=== PATIENT | female | born 1945 | race Caucasian/White ===

== ENCOUNTER 2018-09-30 20:38 | Inpatient (IN) | payer MEDICARE, BC ==
[~2018-09-30] VITALS: Ht 157.5 cm; Wt 110.4 kg
[~2018-09-30 20:38] MED LIST: ADVAIR DISKU AER 500; ALBU90OI6 INH; ALLO300 PO; ATOR40TA PO; Albuterol2.5 MG/0.5 INH; FLUT1DIS8 INH; Fortamet500 MG PO; LISI20 PO; LISI5 PO; METF500 PO; METO50ER PO; METPRE4DP PO; OMEPRAZOLE CAP 20M; OMEPRAZOLE MAGN20 MG PO; PARO20 PO; Percocet 5-3251 EACH PO; Pravachol40 MG PO; Robaxin500 MG PO; TIOT18 INH; TRELEGY ELLIPT1 EACH INH; WARF2.5 PO; WARF5 PO
[2018-09-30 21:11] LABS: PCO2 Arterial 41.3 mmHg (35-45); PO2 Arterial 60.1 mmHg (80-100); pH Blood Arterial 7.38 (7.35-7.45)
[2018-09-30 21:14] LABS: BASOPHILS ABSOLUTE AUTO 0.08 K/mm3 (0.00-0.23); BASOPHILS PERCENT AUTO 1 % (0-2); EOSINOPHILS PERCENT AUTO 1 % (0-6); Hematocrit 44.9 % (33.0-51.0); Hemoglobin 13.9 g/dL (11.5-16.0); IMMATURE GRAN ABSOLUTE AUTO 0.09 K/mm3 (0.00-0.10); IMMATURE GRAN PERCENT AUTO 1 % (0-1); LYMPHOCYTES ABSOLUTE AUTO 2.38 K/mm3 (0.84-5.20); LYMPHOCYTES PERCENT AUTO 14 % (21-46); MONOCYTES ABSOLUTE AUTO 0.75 K/mm3 (0.16-1.47); MONOCYTES PERCENT AUTO 4 % (4-13); Mean Corpuscular HGB 30.9 pg (26.0-34.0); Mean Corpuscular Volume 100 fL (80-100); Mean Platelet Volume 10.9 fL (9.1-12.4); NEUTROPHILS PERCENT AUTO 80 % (41-73); Platelet Count 243 K/mm3 (150-400); RDW Coefficient Variation 14.6 % (11.7-14.2); RDW Standard Deviation 54.3 fL (35.1-46.3)
[2018-09-30 21:46] LABS: Alanine Aminotransfer (ALT/SGP 19 U/L (12-78); Albumin, Blood 3.4 g/dL (3.4-5.0); Albumin/Globulin Ratio 0.7 (0.8-1.8); Alk Phos 138 U/L (50-136); Anion Gap 6 mmol/L (6-16); Aspartate Aminotrans (AST/SGOT 20 U/L (12-37); Bilirubin, Total 1.1 mg/dL (0.1-1.0); Blood Urea Nitrogen 18 mg/dL (8-24); Bun/Creatinine Ratio 20.7 (12.0-20.0); CO2, Blood 29 mmol/L (21-32); Calcium, Blood 9.1 mg/dL (8.5-10.1); Chloride, Blood 103 mmol/L (98-108); Creatinine, Blood 0.87 mg/dL (0.40-1.00); Globulin, Blood 4.7 g/dL (2.2-4.0); Glomerular Filtration Rate >60 (60-); Glucose, Blood 133 mg/dL (70-99); Potassium, Blood 4.6 mmol/L (3.5-5.5); Sodium, Blood 138 mmol/L (136-145); Total Protein, Blood 8.1 g/dL (6.4-8.2); Troponin I <0.015 ng/mL (0.000-0.040)
[2018-09-30 22:17] LABS: International Normalized Ratio 2.24; Prothrombin Time Results 22.1 Sec (9.7-11.5)
--- NOTE | 2018-10-01 03:19 | NUR ---
ED ADMIT AT 2315. ON BIPAP 19/15. FIO2 AT 100 % , BUR 14 AND RR 27 / AWAKE AND QUICK RESPONSE TO QUEATION AND ORIENTED. RESP CONSERVE SO MINIMAL QUESTIONS. MOVE ALL EXT W/O IMPAIRMENT. PER HX CVA . HX BREAST CA . COARSE LUNGS AND AWARE MD DID NOT WANT LASIX AT THIS X . LACTIC ACID WNL AT 0100 AND DID NOT CALL MD. WEANING TO 50% FIO2 OVER LAST 4 HRS . TOOK OFF QUICKLY TO COUGH AND SWAB FOR RESP PANEL. DROPLET ISO UNTIL CONPLETE .REPOSITIONS SELF IN BED AND ASSISTS WELL FOR BED SAEZ. DENIES PAIN AND DOZING AT LONG INTERVALS ON BIPAP. AF CONTROLLED . 80-100. NEURO CHECK WNL.
[2018-10-01 05:00] LABS: Adenovirus Not Detected (NOT DETECT); Bordetella pertussis Not Detected (NOT DETECT); Chlamydophila pneumoniae Not Detected (NOT DETECT); Coronavirus 229E Not Detected (NOT DETECT); Coronavirus HKU1 Not Detected (NOT DETECT); Coronavirus NL63 Not Detected (NOT DETECT); Coronavirus OC43 Not Detected (NOT DETECT); Human Metapneumovirus Not Detected (NOT DETECT); Human Rhinovirus/Enterovirus Not Detected (NOT DETECT); Influenza A Not Detected (NOT DETECT); Influenza A/2009-H1 Not Detected (NOT DETECT); Influenza A/H1 Not Detected (NOT DETECT); Influenza A/H3 Not Detected (NOT DETECT); Influenza B Not Detected (NOT DETECT); Mycoplasma pneumoniae Not Detected (NOT DETECT); Parainfluenza Virus 1 Not Detected (NOT DETECT); Parainfluenza Virus 2 Not Detected (NOT DETECT); Parainfluenza Virus 3 Not Detected (NOT DETECT); Parainfluenza Virus 4 Not Detected (NOT DETECT); Respiratory Syncytial Virus Not Detected (NOT DETECT)
[2018-10-01 05:29] LABS: Hematocrit 42.5 % (33.0-51.0); Hemoglobin 13.7 g/dL (11.5-16.0); Mean Corpuscular HGB 30.4 pg (26.0-34.0); Mean Corpuscular HGB Conc 32.2 g/dL (31.5-36.5); Mean Platelet Volume 11.8 fL (9.1-12.4); Platelet Count 182 K/mm3 (150-400); RDW Coefficient Variation 14.6 % (11.7-14.2); RDW Standard Deviation 51.1 fL (35.1-46.3); White Blood Cell Count 24.88 K/mm3 (4.00-11.30)
[2018-10-01 05:32] LABS: Mean Corpuscular Volume 94 fL (80-100)
[2018-10-01 05:46] LABS: Bun/Creatinine Ratio 19.1 (12.0-20.0); Calcium, Blood 8.8 mg/dL (8.5-10.1); Creatinine, Blood 1.31 mg/dL (0.40-1.00); Potassium, Blood 4.5 mmol/L (3.5-5.5)
[2018-10-01 09:26] LABS: International Normalized Ratio 2.37; Prothrombin Time Results 23.2 Sec (9.7-11.5)
--- NOTE | 2018-10-01 10:40 | NUR ---
AM NOTE RESTING QUIETLY. CHRONIC AFIB. VSS. PT TAKING REST BREAKS FROM BIPAP. 4L OXIMYZER. CONTINIOUS BIOX 93% ON HIGHER. ONE TRANSFER TO BSC. MILD SOB WITH TRANSFER. ABLE TO EAT WITHOUT DESATING. GEL PAD APPLIED TO BRIDGE OF NOSE FOR COMFORT AND SKIN PROTECTION. CONTINUE POT.
--- NOTE | 2018-10-02 02:20 | NUR ---
ASSUMED CARE AT 1900. AROUSABLE AND ORIENTED AND ABLE TO EXPRESS NEEDS THRU MASK OF BIPAP. ..35% FIO2. DENIES PAIN DOZING OFF TO SLEEP. USES CALL LITE FOR BSC . 1 PERSON ASSIST. 4L OXIMIZER USED WITH BIPAP BREAK. LONGEST BREAK WAS 1 HR AND REFUSED HS SNACK. MILD SOB WHEN OOB. SELF CARE FOR TEETH. AF CONTROLLED.
[2018-10-02 04:27] LABS: BASOPHILS ABSOLUTE AUTO 0.04 K/mm3 (0.00-0.23); BASOPHILS PERCENT AUTO 0 % (0-2); EOSINOPHILS PERCENT AUTO 0 % (0-6); Hematocrit 38.5 % (33.0-51.0); IMMATURE GRAN ABSOLUTE AUTO 0.34 K/mm3 (0.00-0.10); IMMATURE GRAN PERCENT AUTO 1 % (0-1); LYMPHOCYTES ABSOLUTE AUTO 1.44 K/mm3 (0.84-5.20); LYMPHOCYTES PERCENT AUTO 6 % (21-46); MONOCYTES ABSOLUTE AUTO 1.53 K/mm3 (0.16-1.47); MONOCYTES PERCENT AUTO 6 % (4-13); Mean Corpuscular HGB 29.7 pg (26.0-34.0); Mean Corpuscular HGB Conc 31.2 g/dL (31.5-36.5); Mean Corpuscular Volume 95 fL (80-100); Mean Platelet Volume 11.8 fL (9.1-12.4); NEUTROPHILS ABSOLUTE AUTO 21.87 K/mm3 (1.96-9.15); NEUTROPHILS PERCENT AUTO 87 % (41-73); Platelet Count 198 K/mm3 (150-400); RDW Coefficient Variation 14.8 % (11.7-14.2); RDW Standard Deviation 52.3 fL (35.1-46.3); Red Blood Cell Count 4.04 M/mm3 (3.80-5.20); White Blood Cell Count 25.22 K/mm3 (4.00-11.30)
[2018-10-02 04:39] LABS: International Normalized Ratio 3.23; Prothrombin Time Results 30.8 Sec (9.7-11.5)
[2018-10-02 04:45] LABS: Calcium, Blood 9.1 mg/dL (8.5-10.1); Creatinine, Blood 1.5 mg/dL (0.40-1.00); Potassium, Blood 4.3 mmol/L (3.5-5.5)
--- NOTE | 2018-10-02 06:07 | NUR ---
SHIFT SUMMARY. NO CHANGE FROM ABOVE NOTE. NO ACUTE RESP ISSUE. AND SLEPT VERY WELL IN BETWEEN OOB TO VOID. WEARS BIPAP ALL NOC W/ MINIMAL BREAKS.
--- NOTE | 2018-10-02 07:59 | NUR ---
PERMISSION FOR CARE PT GAVE THIS SHIPYARD PAINTER APPRENTICE PERMISSION TO PROVIDE CARE 10/02/18.
--- NOTE | 2018-10-02 13:10 | NUR ---
RECIEVED ORDERS TO TRANSFER PT TO MED FLOOR. RECIEVED ROOM ASSIGNMENT. REPORT CALLED TO RECIEVING RN. PT STABLE UPON DEPARTING UNIT. NO S/SX OF ACUTE DISTRESS. NO SOB. PT ESCORTED VIA WHEELCHAIR FROM PEER STAFF.
--- NOTE | 2018-10-02 16:13 | NUR ---
Patient gave director community health nursing permission to care for them on 10/03/18.
--- NOTE | 2018-10-02 18:41 | NUR ---
SHIFT SUMMARY SILVIANO ARRIVED THIS AFTERNOON FROM PCU. SHE DENIES PAIN, SBA TO BR. SISTER AT . WEANED DOWN TO 2L OXYGEN, SATS FINE. CBG WNL THIS SHIFT. WCTM
--- NOTE | 2018-10-03 04:26 | NUR ---
SHIFT SUMMARY PT ALERT/ORIENTED. BECOMES DYSPNEIC WITH EXERTION. PT ONLY ABLE TO TOLERATE CPAP FOR A COUPLE OF HOURS, SATS DROPPING DOWN TO 83%. MASK NOT FITTING RIGHT TO COMPLETELY SEAL. OXYGEN PLACED BACK ON PER NC AT 3L AND SATS MAINTAIN AT 92%. PT UP TO BATHROOM DURING THE NIGHT AND SATS DO DROP INTO THE UPPER 70'S WITH OXYGEN. PT OFFERS NO C/O'S, WILL CONTINUE TO MONITOR.
[2018-10-03 05:40] LABS: International Normalized Ratio 3.09; Prothrombin Time Results 29.6 Sec (9.7-11.5)
--- NOTE | 2018-10-03 14:42 | NUR ---
PT IS ALERT AND ORIENTED AND COOPERATIVE WITH CARE. SHE SHOWERED INDEPENDENTLY TODAY. SHE IS WEARING 3L O2 VIA NC. SHE IS NOW RESTING IN BED. NO COMPLAINTS OF PAIN. A PULMONARY CONSULT WITH DR. TUTTLE HAS BEEN MADE. WILL CONTINUE TO MONITOR
--- NOTE | 2018-10-03 17:24 | NUR ---
RT TITRATED THE PT DOWN FROM 3L O2 VIA NC TO 2L O2 VIA NC. NO COMPLAINTS. WILL CONTINUE TO MONITOR.
--- NOTE | 2018-10-04 04:13 | NUR ---
NOC SHIFT SUMMARY PT HAS BEEN PLEASANT AND COOPERATIVE WITH CARE THIS NIGHT. AAOX4. VSS. HER O2 SATS HAVE REMAINED IN THE 90'S THROUGHOUT THE NIGHT. CURRENTLY SHE IS AT 96% ON ROOM AIR AND IS SLEEPING RESTFULLY. PT APPEARS IN NO ACUTE DISTRESS. NO ACUTE CHANGES NOTED THIS SHIFT. WILL CONTINUE TO MONITOR AND REPORT TO ONCOMING RN.
[2018-10-04 05:15] LABS: BASOPHILS ABSOLUTE AUTO 0.01 K/mm3 (0.00-0.23); BASOPHILS PERCENT AUTO 0 % (0-2); EOSINOPHILS PERCENT AUTO 0 % (0-6); Hematocrit 37.7 % (33.0-51.0); IMMATURE GRAN PERCENT AUTO 1 % (0-1); LYMPHOCYTES ABSOLUTE AUTO 1.14 K/mm3 (0.84-5.20); LYMPHOCYTES PERCENT AUTO 7 % (21-46); MONOCYTES ABSOLUTE AUTO 1.15 K/mm3 (0.16-1.47); MONOCYTES PERCENT AUTO 7 % (4-13); Mean Corpuscular HGB 30.2 pg (26.0-34.0); Mean Corpuscular HGB Conc 31.8 g/dL (31.5-36.5); Mean Corpuscular Volume 95 fL (80-100); Mean Platelet Volume 11.5 fL (9.1-12.4); NEUTROPHILS PERCENT AUTO 85 % (41-73); NRBC ABSOLUTE 0.02 K/mm3 (0.00-0.02); NRBC Auto 0.1 /100 WBC (0.0-0.2); Platelet Count 212 K/mm3 (150-400); RDW Coefficient Variation 14.6 % (11.7-14.2); RDW Standard Deviation 50.7 fL (35.1-46.3); Red Blood Cell Count 3.98 M/mm3 (3.80-5.20)
[2018-10-04 05:29] LABS: International Normalized Ratio 2.74; Prothrombin Time Results 26.5 Sec (9.7-11.5)
[2018-10-04 05:49] LABS: Bun/Creatinine Ratio 41.1 (12.0-20.0); Calcium, Blood 9.2 mg/dL (8.5-10.1); Creatinine, Blood 1.12 mg/dL (0.40-1.00); Potassium, Blood 4.5 mmol/L (3.5-5.5)
[2018-10-04] MEDS ORDERED: Acetaminophen325 M1 PO (16:26)
[2018-10-04] MEDS ORDERED: FURO20 PO (16:27)
[2018-10-04] MEDS ORDERED: LEVOFLOXACIN750 MG PO (16:28)
[2018-10-04] MEDS ORDERED: Micro-K10 MEQ PO (16:29)
[2018-10-04] MEDS ORDERED: ONDA4ODT MM (16:29)
[2018-10-04] MEDS ORDERED: SACC250C PO (16:32)
[2018-10-04] MEDS ORDERED: PRED20 PO (16:32)
--- NOTE | 2018-10-04 16:58 | NUR ---
PT DISCHARGED HOME ON 10/04/18, 2496. IV DC'D. HOME O2 EVALUATION COMPLETE. GERALD CAME TO THE HOSPITAL TO SEE THE PT AND SET HER UP WITH HOME OXYGEN.
== END 2018-10-04 17:02 | disposition home or self-care (01) | DRG 871 ==
LOC: ER 20:38 → MEDS 22:07 → PCU 22:07 → MEDS 10-02 14:31
PROVIDERS: Emergency Medicine; Family Medicine; Hospitalist; ADMIT Internal Medicine
DX: A41.9 Sepsis, unspecified organism (principal); J18.1 Lobar pneumonia, unspecified organism; J96.21 Acute and chronic respiratory failure with hypoxia; J96.22 Acute and chronic respiratory failure with hypercapnia; J44.1 Chronic obstructive pulmonary disease with (acute) exacerbation; Z68.41 Body mass index [BMI] 40.0-44.9, adult; R04.2 Hemoptysis; E66.2 Morbid (severe) obesity with alveolar hypoventilation; R65.20 Severe sepsis without septic shock; E78.5 Hyperlipidemia, unspecified; I48.2 Chronic atrial fibrillation; Z79.01 Long term (current) use of anticoagulants; F32.9 Major depressive disorder, single episode, unspecified; Z87.891 Personal history of nicotine dependence; I27.20 Pulmonary hypertension, unspecified; N18.3 Chronic kidney disease, stage 3 (moderate); E11.22 Type 2 diabetes mellitus with diabetic chronic kidney disease; I12.9 Hypertensive chronic kidney disease with stage 1 through stage 4 chronic kidney disease, or unspecified chronic kidney disease; Z99.81 Dependence on supplemental oxygen; E78.00 Pure hypercholesterolemia, unspecified
CPT/HCPCS: 36415; 36600; 71045; 71046; 71260; 80048; 80053; 82803; 82947; 83605; 83880; 84484; 85025; 85027; 85610; 87040; 87486; 87581; 87633; 87798; 93005; 93010; 93306; 94640; 94660; 94762; 96365; 96375; 97110; 97116; 97162; 97530; 99285-25; J0456; J0696; J1940; J2930; J7050; J7512; Q9967

== ENCOUNTER 2019-08-05 20:54 | Inpatient (IN) | payer MEDICARE, BC ==
[~2019-08-05] VITALS: Ht 167.6 cm; Wt 99.6 kg
[~2019-08-05 20:54] MED LIST changes: +Acetaminophen325 M1 PO; +FURO20 PO; +LEVOFLOXACIN750 MG PO; +Micro-K10 MEQ PO; +ONDA4ODT MM; +PRED20 PO; +SACC250C PO
[2019-08-05 21:25] LABS: BASOPHILS ABSOLUTE AUTO 0.05 K/mm3 (0.00-0.23); BASOPHILS PERCENT AUTO 0 % (0-2); EOSINOPHILS ABSOLUTE AUTO 0.02 K/mm3 (0.00-0.68); EOSINOPHILS PERCENT AUTO 0 % (0-6); Hematocrit 41.2 % (33.0-51.0); IMMATURE GRAN PERCENT AUTO 1 % (0-1); LYMPHOCYTES ABSOLUTE AUTO 2.93 K/mm3 (0.84-5.20); LYMPHOCYTES PERCENT AUTO 18 % (21-46); MONOCYTES ABSOLUTE AUTO 1.09 K/mm3 (0.16-1.47); MONOCYTES PERCENT AUTO 7 % (4-13); Mean Corpuscular HGB 30.2 pg (26.0-34.0); Mean Corpuscular HGB Conc 31.6 g/dL (31.5-36.5); Mean Corpuscular Volume 96 fL (80-100); Mean Platelet Volume 11.3 fL (9.1-12.4); NEUTROPHILS ABSOLUTE AUTO 12.44 K/mm3 (1.96-9.15); NEUTROPHILS PERCENT AUTO 75 % (41-73); Platelet Count 300 K/mm3 (150-400); RDW Coefficient Variation 15.4 % (11.7-14.2); RDW Standard Deviation 54.4 fL (35.1-46.3); Red Blood Cell Count 4.31 M/mm3 (3.80-5.20); White Blood Cell Count 16.63 K/mm3 (4.00-11.30)
[2019-08-05 21:42] LABS: International Normalized Ratio 2.41; Prothrombin Time Results 24.5 Sec (9.7-11.5)
[2019-08-05 21:46] LABS: Albumin, Blood 3.5 g/dL (3.4-5.0); Albumin/Globulin Ratio 0.8 (0.8-1.8); Bilirubin, Total 0.5 mg/dL (0.1-1.0); Bun/Creatinine Ratio 11.6 (12.0-20.0); Calcium, Blood 9.4 mg/dL (8.5-10.1); Creatinine, Blood 2.16 mg/dL (0.40-1.00); Globulin, Blood 4.6 g/dL (2.2-4.0); Potassium, Blood 4.7 mmol/L (3.5-5.5); Total Protein, Blood 8.1 g/dL (6.4-8.2)
[2019-08-05 21:50] LABS: Source, Urine Voided
[2019-08-05 21:53] LABS: Bilirubin, Urine Neg (Neg); Blood, Urine Neg (Neg); Glucose Qualitative, Urine Neg (Neg); Ketones, Urine Neg (Neg); Leukocyte Esterase, Urine 1+ (Neg); Nitrite, Urine Neg (Neg); Protein, Urine Neg (Neg); Urobilinogen, Urine NORM (Normal)
[2019-08-05 22:00] LABS: Appearance, Urine Clear (Clear); Color, Urine Yellow (P-Yellow)
[2019-08-05 22:01] LABS: Bacteria Few /hpf; Red Blood Cells, Urine 0-2 /hpf (0-2); Squamous Epithelial Cells Few /hpf (Few)
--- NOTE | 2019-08-05 23:04 | NUR ---
TRANSFER REPORT ON pt BEING ADMITTED WITH ams TIA versus possible seizure activity. ETOH level repoted elevated at 61. Await admission
[2019-08-06 02:09] LABS: Adenovirus Not Detected (NOT DETECT); Bordetella pertussis Not Detected (NOT DETECT); Chlamydophila pneumoniae Not Detected (NOT DETECT); Coronavirus 229E Not Detected (NOT DETECT); Coronavirus HKU1 Not Detected (NOT DETECT); Coronavirus NL63 Not Detected (NOT DETECT); Coronavirus OC43 Not Detected (NOT DETECT); Human Metapneumovirus Not Detected (NOT DETECT); Human Rhinovirus/Enterovirus Not Detected (NOT DETECT); Influenza A Not Detected (NOT DETECT); Influenza A/2009-H1 Not Detected (NOT DETECT); Influenza A/H1 Not Detected (NOT DETECT); Influenza A/H3 Not Detected (NOT DETECT); Influenza B Not Detected (NOT DETECT); Mycoplasma pneumoniae Not Detected (NOT DETECT); Parainfluenza Virus 1 Not Detected (NOT DETECT); Parainfluenza Virus 2 Not Detected (NOT DETECT); Parainfluenza Virus 3 Not Detected (NOT DETECT); Parainfluenza Virus 4 Not Detected (NOT DETECT); Respiratory Syncytial Virus Not Detected (NOT DETECT)
[2019-08-06 03:28] LABS: Hematocrit 40.1 % (33.0-51.0); Hemoglobin 12.4 g/dL (11.5-16.0); Mean Corpuscular HGB 29.9 pg (26.0-34.0); Mean Corpuscular HGB Conc 30.9 g/dL (31.5-36.5); Mean Corpuscular Volume 97 fL (80-100); Mean Platelet Volume 10.9 fL (9.1-12.4); Platelet Count 268 K/mm3 (150-400); RDW Coefficient Variation 15.4 % (11.7-14.2); RDW Standard Deviation 54.7 fL (35.1-46.3); Red Blood Cell Count 4.15 M/mm3 (3.80-5.20)
[2019-08-06 03:42] LABS: International Normalized Ratio 2.75
[2019-08-06 03:45] LABS: Albumin, Blood 3.2 g/dL (3.4-5.0); Albumin/Globulin Ratio 0.8 (0.8-1.8); Bilirubin, Total 0.7 mg/dL (0.1-1.0); Bun/Creatinine Ratio 14.1 (12.0-20.0); Calcium, Blood 8.8 mg/dL (8.5-10.1); Creatinine, Blood 1.99 mg/dL (0.40-1.00); Globulin, Blood 4.2 g/dL (2.2-4.0); Potassium, Blood 4.8 mmol/L (3.5-5.5); Total Protein, Blood 7.4 g/dL (6.4-8.2)
[2019-08-06 03:47] LABS: Prothrombin Time Results 27.8 Sec (9.7-11.5)
--- NOTE | 2019-08-06 05:08 | NUR ---
74 year old Female unaccompanied brought in via EMS from [place] with AMS AND TIA VERSUS SEIZURE ACTIVITY. SEIZURE PRECAUTIONS in use. PT had critical 4.8 lactic acid called to DR SOARES who saw PT on flood and gave fluid bolus orders then 200 ml hr NS x 1 l and then NS at [address] Padilla updated on second lactic 3.8 and he orders recheck at 0900 and continue ns at 100 ml hr. PT up to bedpan and bedside commode and unable to void. Sutton cath ordered for urinary retention and confused PT currently declines. Will reapproach. Resp panel negative. Elevated creatinine coming down to 1.99. PT on tele aflutter rate currently 92. HX of CVA and brain tumor removal. PT confused asphasic unable to verify med list.
[2019-08-06 07:10] LABS: Source, Urine Catheter
[2019-08-06 07:34] LABS: Bilirubin, Urine Neg (Neg); Blood, Urine 2+ (Neg); Glucose Qualitative, Urine Neg (Neg); Ketones, Urine Neg (Neg); Leukocyte Esterase, Urine Neg (Neg); Nitrite, Urine Neg (Neg); Protein, Urine Neg (Neg); Urobilinogen, Urine NORM (Normal)
--- NOTE | 2019-08-06 07:41 | NUR ---
sISTER Mily WHO HAS LIVED WITH pt LAST 2 YEARS SAYS PT MANAGES HER OWN MEDS DRIVES AND IS ALERT AND ORIENTED. HX OF BRAIN TUMOR REMOVAL SISTER SAYS CAUGHT EARLY AND HAS NOT BEEN AN ISSUE. RECENT CARIOLOGY VISIT IN XMS, SISTER SAYS MULTIPLE MED CHANGES MADE. PT UNABLE TO VERIFY. HOPSON CATH PLACED FOR ACUTE URINARY RETENTION OF 800 ML UA WITH C 7 S IF INDICATED PER PROTOCOL SENT URINE TOXICOLOGY SENT. PHOTOS OF SACRal area scar tissue redness and bilat feet dusky purkle toes in diabetic pt. continues to be unable to state year or month , knows she is in hospital. oxygen 4.5 l high flow to keep sats greater than 90%
[2019-08-06 07:48] LABS: Color, Urine Yellow (P-Yellow)
[2019-08-06 07:50] LABS: Appearance, Urine Clear (Clear); White Blood Cells, Urine 0-2 /hpf (0-5)
[2019-08-06 07:51] LABS: Amorphous Light (0-Heavy); Bacteria Rare /hpf; Hyaline Casts 0-2 /lpf (0-2); Squamous Epithelial Cells Not Seen /hpf (Few)
[2019-08-06 07:55] LABS: U Amphetamine Screen Not Detected; U Barbituate Screen Not Detected; U Benzodiazapine Screen Not Detected; U Buprenorphine Screen Not Detected; U Cannabinoids Screen Not Detected; U Cocaine Screen Not Detected; U Methadone Screen Not Detected; U Methamphetamine Screen Not Detected; U Opiates Screen Not Detected; U Oxycodone Screen Not Detected; U Propoxyphene Screen Not Detected
[2019-08-06 09:36] LABS: Uric Acid, Blood 3.6 mg/dL (2.6-6.0)
[2019-08-06 09:38] LABS: Thyroid Stimulating Hormone 1.11 uIU/mL (0.360-4.800)
--- NOTE | 2019-08-06 16:16 | NUR ---
PCU DAYSHIFT SUMMARY PATIENT REMAINS ALERT AND ORIENTED TO SELF AND FAMILY. CONFUSED TO DATE. RESP E/U AT REST ON 4 LPM HIGH FLOW CANNULA- PATIENT ON 2 LPM CANNULA AT HOME. PATIENT REPORTS BUTTOCK PAIN (FLOATED ON PILLOWS FOR COMFORT). PATIENTS HEART RATE REMAINS A FLUTTER IN THE 80-90'S WITH NO FURTHER CARDIAC EVENTS PER BUDGET ANALYST. FAMILY AT BEDSIDE T/O THE DAY. PATIENT WORKED WITH PT AND WAS ABLE TO STAND WITH WALKER WITH MODERATE ASSIST. (1-2 PERSON MODERATE PIVOT TRANSFER AT THIS TIME). CALL LIGHT W/I REACH AND SIDERAILS UP, BED ALARM ON. WILL CONTINUE TO MONITOR.
--- NOTE | 2019-08-06 19:30 | NUR ---
REPORT REC'D FROM REGGIE CAI. PT LYING IN BED, SZ PADS IN PLACE. IV COMPLETE. SL'D. VSS. ASSESSMENT NOTED. PT DENIES ANY NEEDS AT THIS TIME. CALL LIGHT IN REACH. HOPSON SECURED BELOW PT, OFF FLOOR AND PATENT.
[2019-08-07 04:12] LABS: BASOPHILS ABSOLUTE AUTO 0.06 K/mm3 (0.00-0.23); BASOPHILS PERCENT AUTO 0 % (0-2); EOSINOPHILS ABSOLUTE AUTO 0.07 K/mm3 (0.00-0.68); EOSINOPHILS PERCENT AUTO 0 % (0-6); Hematocrit 35.8 % (33.0-51.0); Hemoglobin 11.6 g/dL (11.5-16.0); IMMATURE GRAN ABSOLUTE AUTO 0.06 K/mm3 (0.00-0.10); IMMATURE GRAN PERCENT AUTO 0 % (0-1); LYMPHOCYTES ABSOLUTE AUTO 1.66 K/mm3 (0.84-5.20); LYMPHOCYTES PERCENT AUTO 10 % (21-46); MONOCYTES ABSOLUTE AUTO 2.03 K/mm3 (0.16-1.47); MONOCYTES PERCENT AUTO 12 % (4-13); Mean Corpuscular HGB 30.2 pg (26.0-34.0); Mean Corpuscular HGB Conc 32.4 g/dL (31.5-36.5); Mean Platelet Volume 11.8 fL (9.1-12.4); NEUTROPHILS ABSOLUTE AUTO 12.51 K/mm3 (1.96-9.15); NEUTROPHILS PERCENT AUTO 76 % (41-73); Platelet Count 252 K/mm3 (150-400); RDW Coefficient Variation 15.5 % (11.7-14.2); Red Blood Cell Count 3.84 M/mm3 (3.80-5.20); White Blood Cell Count 16.39 K/mm3 (4.00-11.30)
[2019-08-07 04:14] LABS: Mean Corpuscular Volume 93 fL (80-100)
[2019-08-07 04:25] LABS: International Normalized Ratio 2.96; Prothrombin Time Results 29.8 Sec (9.7-11.5)
[2019-08-07 04:35] LABS: Anion Gap 5 mmol/L (6-16); Blood Urea Nitrogen 19 mg/dL (8-24); Bun/Creatinine Ratio 22.2 (12.0-20.0); CO2, Blood 27 mmol/L (21-32); Calcium, Blood 8.9 mg/dL (8.5-10.1); Chloride, Blood 102 mmol/L (98-108); Creatinine, Blood 0.86 mg/dL (0.40-1.00); Glomerular Filtration Rate >60 (60-); Glucose, Blood 127 mg/dL (70-99); Potassium, Blood 4.5 mmol/L (3.5-5.5); Sodium, Blood 134 mmol/L (136-145)
--- NOTE | 2019-08-07 06:21 | NUR ---
SHIFT SUMMARY NO SIG CHANGES OR NEW COMPLAINTS THIS SHIFT. PT DID NOT HAVE MUCH IN THE WAY OF NURSING NEEDS THIS SHIFT OTHER THAN ROUTINE MEDS AND ADL CARE. IT APPEARS THAT SHE HAD A BLOODY NOSE AT SOME POINT, DRIED BLOOD NOTED IN BOTH NARES AND UNDER NC WHEN GIVING AM MEDS. CLEANED OFF WITH WET WIPE. FRESH ICE WATER PROVIDED. NO OTHER NEEDS NOTED. CALL LIGHT IN REACH. WILL CONT TO MONITOR, DOCUMENT ANY CHANGES AND WILL REPORT TO DAY SHIFT RN.
--- NOTE | 2019-08-07 18:50 | NUR ---
SHIFT SUMMARY PT IS A&OX4, FORGETFUL AT TIMES. HOPSON REMAINS IN PLACE FOR URINARY RETENTION. WAS ABLE TO WEAN PT DOWN ON O2 TO 3LNC TODAY. LUNGS ARE DIM T/O WITH COARSE BASES. TELEMETRY SHOWED PT TO BE A-FIB, RATE CONTROLLED. VITALS HAVE REMAINED STABLE. PT STATUS CHANGED TO MEDICAL NO TELE THIS EVENING.
--- NOTE | 2019-08-08 03:45 | NUR ---
DRAFTSPERSON SUMMARY PT PCU TRANSFER AT BEGINNING OF SHIFT. INTRODUCTED TO STAFF AND ORIENTED TO ROOM. VITALS STABLE. A/O X4. NO SPEECH DIFFICULTIES NOTICIED. HOPSON IN PLACE FOR RETENTION, PATENT AND DRAINING DARK URINE. 3 L O2 NASAL CANNULA SATTING AT 95%. NO ACUTE CHANGES. WILL CONTINUE TO MONITOR.
[2019-08-08 04:50] LABS: BASOPHILS ABSOLUTE AUTO 0.07 K/mm3 (0.00-0.23); BASOPHILS PERCENT AUTO 1 % (0-2); EOSINOPHILS ABSOLUTE AUTO 0.27 K/mm3 (0.00-0.68); EOSINOPHILS PERCENT AUTO 2 % (0-6); Hematocrit 34.9 % (33.0-51.0); Hemoglobin 10.9 g/dL (11.5-16.0); IMMATURE GRAN ABSOLUTE AUTO 0.07 K/mm3 (0.00-0.10); IMMATURE GRAN PERCENT AUTO 1 % (0-1); LYMPHOCYTES ABSOLUTE AUTO 1.92 K/mm3 (0.84-5.20); LYMPHOCYTES PERCENT AUTO 14 % (21-46); MONOCYTES ABSOLUTE AUTO 1.86 K/mm3 (0.16-1.47); MONOCYTES PERCENT AUTO 14 % (4-13); Mean Corpuscular HGB 29.9 pg (26.0-34.0); Mean Corpuscular HGB Conc 31.2 g/dL (31.5-36.5); Mean Platelet Volume 11.7 fL (9.1-12.4); NEUTROPHILS PERCENT AUTO 69 % (41-73); Platelet Count 228 K/mm3 (150-400); RDW Coefficient Variation 15.3 % (11.7-14.2); RDW Standard Deviation 53.8 fL (35.1-46.3); Red Blood Cell Count 3.64 M/mm3 (3.80-5.20); White Blood Cell Count 13.69 K/mm3 (4.00-11.30)
[2019-08-08 05:00] LABS: Mean Corpuscular Volume 96 fL (80-100)
[2019-08-08 05:02] LABS: International Normalized Ratio 2.73; Prothrombin Time Results 27.6 Sec (9.7-11.5)
[2019-08-08 05:13] LABS: Anion Gap 4 mmol/L (6-16); Blood Urea Nitrogen 16 mg/dL (8-24); Bun/Creatinine Ratio 22.5 (12.0-20.0); CO2, Blood 29 mmol/L (21-32); Chloride, Blood 101 mmol/L (98-108); Creatinine, Blood 0.71 mg/dL (0.40-1.00); Glomerular Filtration Rate >60 (60-); Glucose, Blood 92 mg/dL (70-99); Potassium, Blood 4.4 mmol/L (3.5-5.5); Sodium, Blood 134 mmol/L (136-145)
--- NOTE | 2019-08-08 11:00 | NUR ---
HOPSON HOPSON CATH DISCONTINUES AT 1055, WILL MONITOR FOR VOID
--- NOTE | 2019-08-08 14:00 | NUR ---
FIRST VOID FIRST VOID S/P CATH REMOVAL WAS UNMEASURED WHILE PT WORKED WITH O.T., THERAPIST REPORTED THAT IS WAS A "QUITE A BIT" , WILL CONTINUE TO MONITOR
[2019-08-08 15:07] LABS: ALBUMIN 3.1 g/dL (2.9-4.4); ALPHA-1-GLOBULIN 0.3 g/dL (0.0-0.4); BETA GLOBULIN 0.8 g/dL (0.7-1.3); M-SPIKE Not Observed g/dL (Not Observed); PROTEIN, TOTAL, SERUM 6.1 g/dL (6.0-8.5)
--- NOTE | 2019-08-08 17:54 | NUR ---
PT PLEASANT AND COOPERATIVE TODAY, DENIES PAIN, RECIEVING RESP TX AND REMAINS AT 3LNC, BASELINE IS 2LNC. HOPSON CATH REMOVED AND PT IS VOIDING. PT ANTICIPATES DISCHARGE TO REHAB TOMORROW. WILL CONTINUE TO MONITOR AND REPORT TO ONCOMING RN
--- NOTE | 2019-08-08 18:24 | NUR ---
Initial spiritual care note: Mrs. Duke appears well loved and suported by presence of family in room. She expressed surprise at a female refinery operator alkylation and told me she felt well supported by her Jew paste maker. He is making hospital visits to provide prayer and spiritual support. She expressed hope for complete recovery. No fears/concerns presented. She seemed well cared-for by nursing. She declined prayer from me. Supervisor Transcribing Operators services will remain available.
[2019-08-09 05:45] LABS: BASOPHILS ABSOLUTE AUTO 0.05 K/mm3 (0.00-0.23); BASOPHILS PERCENT AUTO 0 % (0-2); EOSINOPHILS ABSOLUTE AUTO 0.33 K/mm3 (0.00-0.68); EOSINOPHILS PERCENT AUTO 3 % (0-6); Hematocrit 34.6 % (33.0-51.0); Hemoglobin 10.9 g/dL (11.5-16.0); IMMATURE GRAN ABSOLUTE AUTO 0.05 K/mm3 (0.00-0.10); IMMATURE GRAN PERCENT AUTO 0 % (0-1); LYMPHOCYTES ABSOLUTE AUTO 2.12 K/mm3 (0.84-5.20); LYMPHOCYTES PERCENT AUTO 17 % (21-46); MONOCYTES ABSOLUTE AUTO 1.62 K/mm3 (0.16-1.47); MONOCYTES PERCENT AUTO 13 % (4-13); Mean Corpuscular HGB 30.4 pg (26.0-34.0); Mean Corpuscular HGB Conc 31.5 g/dL (31.5-36.5); Mean Corpuscular Volume 97 fL (80-100); Mean Platelet Volume 11.3 fL (9.1-12.4); NEUTROPHILS ABSOLUTE AUTO 8.56 K/mm3 (1.96-9.15); NEUTROPHILS PERCENT AUTO 67 % (41-73); Platelet Count 212 K/mm3 (150-400); RDW Coefficient Variation 15.1 % (11.7-14.2); RDW Standard Deviation 53.1 fL (35.1-46.3); Red Blood Cell Count 3.58 M/mm3 (3.80-5.20); White Blood Cell Count 12.73 K/mm3 (4.00-11.30)
[2019-08-09 05:54] LABS: International Normalized Ratio 2.38; Prothrombin Time Results 24.2 Sec (9.7-11.5)
[2019-08-09 06:00] LABS: Albumin, Blood 2.3 g/dL (3.4-5.0); Anion Gap 5 mmol/L (6-16); Blood Urea Nitrogen 22 mg/dL (8-24); Bun/Creatinine Ratio 27.5 (12.0-20.0); CO2, Blood 30 mmol/L (21-32); Calcium, Blood 8.8 mg/dL (8.5-10.1); Chloride, Blood 100 mmol/L (98-108); Glomerular Filtration Rate >60 (60-); Glucose, Blood 91 mg/dL (70-99); Phosphorus, Blood 3.9 mg/dL (2.5-4.9); Potassium, Blood 4.4 mmol/L (3.5-5.5); Sodium, Blood 135 mmol/L (136-145)
--- NOTE | 2019-08-09 07:44 | NUR ---
08/09/19 0630 VITALS STABLE. NO C/O S/S OR DISCOMFORT LAST NIGHT. UP TO BSC FOR VOIDINGS. UNEVENTFUL NIGHT.
[2019-08-09] MEDS ORDERED: DOCU100 PO (11:35)
[2019-08-09] MEDS ORDERED: SENN187 PO (11:36)
[2019-08-09] MEDS ORDERED: CEPH500 PO (11:37)
--- NOTE | 2019-08-09 15:31 | NUR ---
DISCHARGE TO [facility] REPORT CALLED TO CARLOS RN AT [facility], QUESTIONS/CONCERNS ANSWERED, PHONE NUMBER LEFT WITH RN IN CASE FURTHER QUESTIONS ARISE.
--- NOTE | 2019-08-09 16:22 | NUR ---
PT DISCHARGED TO [facility] VIA W/C VAN
== END 2019-08-09 16:20 | DRG 91 ==
LOC: ER 20:54 → PCU 20:55 → MEDS 08-07 20:11 → ENPENDDIS 08-09 10:39 → MEDS 08-09 16:20
PROVIDERS: Emergency Medicine; Family Medicine; Hospitalist; Internal Medicine; ADMIT Internal Medicine
DX: G92 Toxic encephalopathy (principal); J18.9 Pneumonia, unspecified organism; J96.21 Acute and chronic respiratory failure with hypoxia; N17.9 Acute kidney failure, unspecified; E87.2 Acidosis; J44.0 Chronic obstructive pulmonary disease with (acute) lower respiratory infection; N18.4 Chronic kidney disease, stage 4 (severe); F10.20 Alcohol dependence, uncomplicated; I12.9 Hypertensive chronic kidney disease with stage 1 through stage 4 chronic kidney disease, or unspecified chronic kidney disease; E11.22 Type 2 diabetes mellitus with diabetic chronic kidney disease; Z99.81 Dependence on supplemental oxygen; I48.91 Unspecified atrial fibrillation; E66.9 Obesity, unspecified; Z86.73 Personal history of transient ischemic attack (TIA), and cerebral infarction without residual deficits; I27.20 Pulmonary hypertension, unspecified; E78.5 Hyperlipidemia, unspecified; F32.9 Major depressive disorder, single episode, unspecified; Y90.3 Blood alcohol level of 60-79 mg/100 ml; E86.0 Dehydration; Z79.01 Long term (current) use of anticoagulants; Z87.891 Personal history of nicotine dependence; D64.9 Anemia, unspecified
CPT/HCPCS: 0099U; 36415; 51702; 70450; 71046; 71250; 80048; 80053; 80069; 81001; 82140; 82947; 83605; 83880; 84145; 84165; 84443; 84550; 85025; 85027; 85610; 85730; 87040; 93005; 93010; 94760; 97110; 97162; 97166; 97530; 97535; 99285-25; A9270-GY; G0480; J0696; J7030; P9612

== ENCOUNTER 2020-12-05 21:12 | Emergency (ER) | payer MEDICARE, BC ==
[~2020-12-05] VITALS: Ht 172.7 cm; Wt 113.4 kg
[~2020-12-05 21:12] MED LIST changes: +CEPH500 PO; +DOCU100 PO; +SENN187 PO
[2020-12-05 21:49] LABS: BASOPHILS ABSOLUTE AUTO 0.08 K/mm3 (0.00-0.23); BASOPHILS PERCENT AUTO 1 % (0-2); EOSINOPHILS ABSOLUTE AUTO 0.15 K/mm3 (0.00-0.68); EOSINOPHILS PERCENT AUTO 1 % (0-6); Hematocrit 39.1 % (33.0-51.0); Hemoglobin 12.6 g/dL (11.5-16.0); IMMATURE GRAN ABSOLUTE AUTO 0.08 K/mm3 (0.00-0.10); IMMATURE GRAN PERCENT AUTO 1 % (0-1); LYMPHOCYTES ABSOLUTE AUTO 3.94 K/mm3 (0.84-5.20); LYMPHOCYTES PERCENT AUTO 31 % (21-46); MONOCYTES ABSOLUTE AUTO 0.78 K/mm3 (0.16-1.47); MONOCYTES PERCENT AUTO 6 % (4-13); Mean Corpuscular HGB 30.8 pg (26.0-34.0); Mean Corpuscular HGB Conc 32.2 g/dL (31.5-36.5); Mean Corpuscular Volume 96 fL (80-100); Mean Platelet Volume 11.8 fL (9.1-12.4); NEUTROPHILS ABSOLUTE AUTO 7.78 K/mm3 (1.96-9.15); NEUTROPHILS PERCENT AUTO 61 % (41-73); NRBC ABSOLUTE 0.02 K/mm3 (0.00-0.02); NRBC Auto 0.2 /100 WBC (0.0-0.2); Platelet Count 281 K/mm3 (150-400); RDW Coefficient Variation 15.3 % (11.7-14.2); RDW Standard Deviation 54.1 fL (35.1-46.3); Red Blood Cell Count 4.09 M/mm3 (3.80-5.20); White Blood Cell Count 12.81 K/mm3 (4.00-11.30)
[2020-12-05 22:10] LABS: Albumin, Blood 3.2 g/dL (3.4-5.0); Albumin/Globulin Ratio 0.7 (0.8-1.8); Bilirubin, Total 0.9 mg/dL (0.1-1.0); Bun/Creatinine Ratio 23.3 (12.0-20.0); Calcium, Blood 8.7 mg/dL (8.5-10.1); Creatinine, Blood 1.2 mg/dL (0.40-1.00); Globulin, Blood 4.7 g/dL (2.2-4.0); Potassium, Blood 4.3 mmol/L (3.5-5.5); Total Protein, Blood 7.9 g/dL (6.4-8.2)
== END 2020-12-06 00:59 | disposition home or self-care (01) ==
LOC: ER 21:12
PROVIDERS: Emergency Medicine
DX: S81.811A Laceration without foreign body, right lower leg, initial encounter (principal); F10.129 Alcohol abuse with intoxication, unspecified; J44.9 Chronic obstructive pulmonary disease, unspecified; I10 Essential (primary) hypertension; E11.9 Type 2 diabetes mellitus without complications; E78.5 Hyperlipidemia, unspecified; Z79.899 Other long term (current) drug therapy; W01.198A Fall on same level from slipping, tripping and stumbling with subsequent striking against other object, initial encounter
CPT/HCPCS: 70450; 80053; 85025; 93005; 93010; 99284-25; G0480